=== PATIENT | male | born 1975 | race Two or more races ===

== ENCOUNTER 2022-11-26 12:43 | Inpatient (IN) | payer OTHER ==
[~2022-11-26] VITALS: Ht 165.1 cm; Wt 80.2 kg
[2022-11-26 13:16] LABS: Basophils # (auto) 0.1 10 ^3/uL (0-0.2); Basophils % (auto) 1.3 % (0.0-2.0); Eosinophils # (auto) 0.2 10 ^3/uL (0-0.8); Eosinophils % (auto) 2.5 % (0.0-7.0); Hematocrit 37.2 % (41.0-53.0); Lymphocytes # (auto) 3.3 10 ^3/uL (0.4-5.4); Lymphocytes % (auto) 34.1 % (10.0-50.0); Mean Corpuscular Hemoglobin 28.4 pg (28.0-32.0); Mean Corpuscular Hgb Conc. 34.8 g/dL (32.0-36.0); Mean Corpuscular Volume 81.5 fL (80.0-100.0); Monocytes # (auto) 0.6 10 ^3/uL (0-1.3); Monocytes % (auto) 6.7 % (0.0-12.0); Neutrophils # (auto) 5.3 10 ^3/uL (1.6-8.6); Neutrophils % (auto) 55.4 % (37.0-80.0); Red Blood Cells 4.57 10^6/uL (4.5-5.90); Red Cell Distribution Width 13.8 % (11.8-14.3); White Blood Cell 9.6 10^3/uL (4.4-10.8)
[2022-11-26 13:29] LABS: INR 0.91 (0.9-1.15); Partial Thromboplastin Time 29.9 sec (24.6-33.4)
[2022-11-26 13:33] LABS: Albumin 2.6 g/dL (3.4-5.0); Calcium 7.9 mg/dL (8.5-10.1); Magnesium 2.2 mg/dL (1.6-2.6); Potassium 4.6 mmol/L (3.5-5.1)
[2022-11-26 13:39] LABS: BUN/Creatinine Ratio 15.5; Bilirubin, Total 0.3 mg/dL (0.2-1.0); Total Protein 5.4 g/dL (6.4-8.2)
[2022-11-26] MEDS ORDERED: methylPREDNISolone SOD SUCC 125 MG/2 ML VL IV ONE (13:45)
[2022-11-26] MEDS ORDERED: LABETALOL HCL 5 MG/ML 4ML SYRINGE IV ONE (13:45)
[2022-11-26] MEDS ORDERED: cloNIDine HCL 0.1 MG TAB PO ONE (13:45)
[2022-11-26] MEDS ORDERED: cloNIDine HCL 0.1 MG TAB PO PRN (15:15)
[2022-11-26] MEDS ORDERED: ACETAMINOPHEN 325 MG TAB PO PRN (15:15)
[2022-11-26] MEDS ORDERED: DEXTROSE (50%) 50ML SYRG IV PRN (15:15)
[2022-11-26] MEDS ORDERED: ONDANSETRON HCL 4 MG/2 ML VIAL IV PRN (15:15)
[2022-11-26] MEDS ORDERED: dilTIAZem 25 MG/5 ML VIAL IV ONE (15:15)
[2022-11-26] MEDS ORDERED: CLOPIDOGREL BISULFATE 75 MG TAB PO ONE (15:30)
[2022-11-26] MEDS: ACCU-CHEK COMFORT CURVE STRIP VI SCH ×2 (17:19→21:39)
[2022-11-26] MEDS: InsuLIN REG 1unit/0.01ml Soln (100units/ml) SC SCH ×2 (17:21→21:43)
[2022-11-26] MEDS ORDERED: INSU1INJ19 SC (20:15)
[2022-11-26] MEDS ORDERED: ROSU1TAB13 PO (20:15)
[2022-11-26] MEDS ORDERED: NICO21DI37 TOP (20:15)
[2022-11-26] MEDS ORDERED: LOSA-69 PO (20:15)
[2022-11-26] MEDS: ATORVASTATIN 20 MG TAB PO SCH (21:39)
[2022-11-26 22:00] VITALS: BP 201/111
[2022-11-26] MEDS ORDERED: hydrALAZINE HCL 20 MG/ML VL IV ONE (23:15)
[2022-11-27] MEDS: TEMAZEPAM 15 MG CAP PO PRN (00:26)
[2022-11-27] MEDS ORDERED: cloNIDine HCL 0.1 MG TAB PO PRN ×2 (00:30→21:45)
[2022-11-27] MEDS: ASPirin 81 mg TAB PO SCH ×2 (00:37→10:53)
[2022-11-27 05:00] VITALS: BP 147/93
[2022-11-27] MEDS: InsuLIN REG 1unit/0.01ml Soln (100units/ml) SC SCH ×4 (06:42→21:54)
[2022-11-27] MEDS: ACCU-CHEK COMFORT CURVE STRIP VI SCH ×4 (06:43→22:00)
[2022-11-27 06:54] LABS: Basophils # (auto) 0 10 ^3/uL (0-0.2); Basophils % (auto) 0.1 % (0.0-2.0); Eosinophils # (auto) 0 10 ^3/uL (0-0.8); Hematocrit 36.6 % (41.0-53.0); Hemoglobin 12.5 g/dL (13.5-17.5); Lymphocytes # (auto) 1.7 10 ^3/uL (0.4-5.4); Mean Corpuscular Hemoglobin 28.1 pg (28.0-32.0); Mean Corpuscular Hgb Conc. 34.1 g/dL (32.0-36.0); Mean Corpuscular Volume 82.6 fL (80.0-100.0); Monocytes # (auto) 0.3 10 ^3/uL (0-1.3); Monocytes % (auto) 2.3 % (0.0-12.0); Neutrophils # (auto) 10.2 10 ^3/uL (1.6-8.6); Neutrophils % (auto) 83.6 % (37.0-80.0); Nucleated Red Blood Cells % 0.1 %; Red Blood Cells 4.43 10^6/uL (4.5-5.90); Red Cell Distribution Width 13.5 % (11.8-14.3); White Blood Cell 12.3 10^3/uL (4.4-10.8)
[2022-11-27 07:23] LABS: Calcium 8.2 mg/dL (8.5-10.1); Potassium 4.3 mmol/L (3.5-5.1)
[2022-11-27 07:39] LABS: BUN/Creatinine Ratio 18.1
[2022-11-27 09:00] VITALS: BP 156/90
[2022-11-27] MEDS ORDERED: ENOXAPARIN SOD 40 MG/0.4 ML SYRINGE SC SCH (10:00)
[2022-11-27] MEDS ORDERED: ASPirin 81 mg TAB PO SCH (10:00)
[2022-11-27] MEDS: NICOTINE 14 MG/24HR TOPICAL PATCH TD SCH (10:00)
[2022-11-27] MEDS: LOSARTAN POTASSIUM 50 MG TAB PO SCH (10:52)
[2022-11-27] MEDS: hydrALAZINE HCL 20 MG/ML VL IV PRN ×3 (12:28→23:32)
[2022-11-27 13:00] VITALS: BP 184/100
[2022-11-27 15:13] LABS: Alcohol, Urine < 3.0 mg/dL (0-10); Barbiturate Scree,Urine NEGATIVE (NEGATIVE); Benzodiazephine Screen, Urine NEGATIVE (NEGATIVE); Sodium Urine 33 mmol/L (40-220)
[2022-11-27 15:22] LABS: Amphetamine Screen, Urine NEGATIVE (NEGATIVE); Cannabinoid Screen, Urine NEGATIVE (NEGATIVE); Cocaine Screen, Urine NEGATIVE (NEGATIVE); Creatinine, Urine 88 mg/dL (30.0-125.0); Opiate Scree,Urine NEGATIVE (NEGATIVE); Phencyclidine Screen, Urine NEGATIVE (NEGATIVE); Protein, Urine 817.1 mg/dL (0.0-11.9)
[2022-11-27 17:00] VITALS: BP 183/95
[2022-11-27 22:00] VITALS: BP 164/86
[2022-11-27] MEDS: ATORVASTATIN 20 MG TAB PO SCH (22:07)
[2022-11-28] MEDS: TEMAZEPAM 15 MG CAP PO PRN ×2 (01:49→22:31)
[2022-11-28 05:00] VITALS: BP 150/69
[2022-11-28] MEDS: InsuLIN REG 1unit/0.01ml Soln (100units/ml) SC SCH ×4 (05:47→23:02)
[2022-11-28] MEDS: ACCU-CHEK COMFORT CURVE STRIP VI SCH ×4 (06:37→22:22)
[2022-11-28 06:48] LABS: Basophils # (auto) 0.1 10 ^3/uL (0-0.2); Basophils % (auto) 0.9 % (0.0-2.0); Eosinophils # (auto) 0.2 10 ^3/uL (0-0.8); Eosinophils % (auto) 1.3 % (0.0-7.0); Hematocrit 36.3 % (41.0-53.0); Hemoglobin 12.6 g/dL (13.5-17.5); Lymphocytes # (auto) 4.7 10 ^3/uL (0.4-5.4); Lymphocytes % (auto) 34.5 % (10.0-50.0); Mean Corpuscular Hemoglobin 28.6 pg (28.0-32.0); Mean Corpuscular Hgb Conc. 34.8 g/dL (32.0-36.0); Mean Corpuscular Volume 82.3 fL (80.0-100.0); Monocytes # (auto) 0.9 10 ^3/uL (0-1.3); Monocytes % (auto) 6.5 % (0.0-12.0); Neutrophils # (auto) 7.7 10 ^3/uL (1.6-8.6); Neutrophils % (auto) 56.8 % (37.0-80.0); Nucleated Red Blood Cells % 0.1 %; Red Blood Cells 4.41 10^6/uL (4.5-5.90); Red Cell Distribution Width 13.6 % (11.8-14.3); White Blood Cell 13.6 10^3/uL (4.4-10.8)
[2022-11-28 07:28] LABS: Potassium 4.2 mmol/L (3.5-5.1)
[2022-11-28 07:37] LABS: Albumin 2.5 g/dL (3.4-5.0); BUN/Creatinine Ratio 22.2; Calcium 8.6 mg/dL (8.5-10.1)
[2022-11-28 07:39] LABS: Bilirubin, Total 0.2 mg/dL (0.2-1.0); Total Protein 5.7 g/dL (6.4-8.2)
[2022-11-28 08:00] VITALS: BP 172/86
[2022-11-28 09:00] VITALS: BP 172/86
[2022-11-28] MEDS: NICOTINE 14 MG/24HR TOPICAL PATCH TD SCH (10:00)
[2022-11-28] MEDS: ASPirin 81 mg TAB PO SCH (10:26)
[2022-11-28] MEDS: hydrALAZINE HCL 20 MG/ML VL IV PRN (10:26)
[2022-11-28] MEDS: LOSARTAN POTASSIUM 50 MG TAB PO SCH (10:26)
[2022-11-28 13:00] VITALS: BP 117/72
[2022-11-28 17:00] VITALS: BP 151/84
[2022-11-28] MEDS ORDERED: NICOTINE 14 MG/24HR TOPICAL PATCH TD ONE (20:30)
[2022-11-28 22:00] VITALS: BP 152/82
[2022-11-28] MEDS: ATORVASTATIN 20 MG TAB PO SCH (22:31)
[2022-11-29] VITALS (7 sets, daily range): BP systolic 126–171; BP diastolic 69–93
[2022-11-29] MEDS: ACCU-CHEK COMFORT CURVE STRIP VI SCH ×4 (06:09→22:02)
[2022-11-29] MEDS: InsuLIN REG 1unit/0.01ml Soln (100units/ml) SC SCH ×4 (06:13→22:03)
[2022-11-29 07:07] LABS: Basophils # (auto) 0.1 10 ^3/uL (0-0.2); Basophils % (auto) 0.8 % (0.0-2.0); Eosinophils # (auto) 0.3 10 ^3/uL (0-0.8); Eosinophils % (auto) 2.9 % (0.0-7.0); Hematocrit 35.4 % (41.0-53.0); Lymphocytes # (auto) 4.2 10 ^3/uL (0.4-5.4); Lymphocytes % (auto) 42.4 % (10.0-50.0); Mean Corpuscular Volume 82.3 fL (80.0-100.0); Monocytes # (auto) 0.7 10 ^3/uL (0-1.3); Monocytes % (auto) 7.2 % (0.0-12.0); Neutrophils # (auto) 4.6 10 ^3/uL (1.6-8.6); Neutrophils % (auto) 46.7 % (37.0-80.0); Nucleated Red Blood Cells % 0.1 %; Red Cell Distribution Width 13.5 % (11.8-14.3); White Blood Cell 9.9 10^3/uL (4.4-10.8)
[2022-11-29 07:25] LABS: Albumin 2.3 g/dL (3.4-5.0); Potassium 4.5 mmol/L (3.5-5.1)
[2022-11-29 07:28] LABS: BUN/Creatinine Ratio 24.8; Bilirubin, Total 0.2 mg/dL (0.2-1.0); Total Protein 4.7 g/dL (6.4-8.2)
[2022-11-29] MEDS: LOSARTAN POTASSIUM 50 MG TAB PO SCH (09:41)
[2022-11-29] MEDS: ASPirin 81 mg TAB PO SCH (09:46)
[2022-11-29] MEDS: NICOTINE 14 MG/24HR TOPICAL PATCH TD SCH (09:48)
[2022-11-29] MEDS ORDERED: amLODIPine BESYLATE 5 MG TAB PO SCH (10:00)
[2022-11-29] MEDS ORDERED: NIFEdipine ER 30 MG TAB PO ONE (20:15)
[2022-11-29] MEDS: ATORVASTATIN 20 MG TAB PO SCH (21:40)
[2022-11-29] MEDS: TEMAZEPAM 15 MG CAP PO PRN (21:40)
[2022-11-30 05:00] VITALS: BP 132/76
[2022-11-30] MEDS: ACCU-CHEK COMFORT CURVE STRIP VI SCH ×4 (06:49→22:00)
[2022-11-30] MEDS: InsuLIN REG 1unit/0.01ml Soln (100units/ml) SC SCH ×4 (06:51→22:00)
[2022-11-30 07:30] LABS: Basophils # (auto) 0.1 10 ^3/uL (0-0.2); Basophils % (auto) 1.1 % (0.0-2.0); Eosinophils # (auto) 0.3 10 ^3/uL (0-0.8); Eosinophils % (auto) 2.5 % (0.0-7.0); Hematocrit 38.9 % (41.0-53.0); Hemoglobin 13.1 g/dL (13.5-17.5); Lymphocytes # (auto) 4.4 10 ^3/uL (0.4-5.4); Lymphocytes % (auto) 35.3 % (10.0-50.0); Mean Corpuscular Hemoglobin 27.7 pg (28.0-32.0); Mean Corpuscular Hgb Conc. 33.7 g/dL (32.0-36.0); Mean Corpuscular Volume 82.4 fL (80.0-100.0); Monocytes # (auto) 0.8 10 ^3/uL (0-1.3); Monocytes % (auto) 6.6 % (0.0-12.0); Neutrophils # (auto) 6.7 10 ^3/uL (1.6-8.6); Neutrophils % (auto) 54.5 % (37.0-80.0); Red Blood Cells 4.72 10^6/uL (4.5-5.90); Red Cell Distribution Width 13.4 % (11.8-14.3); White Blood Cell 12.4 10^3/uL (4.4-10.8)
[2022-11-30 08:17] LABS: Potassium 4.7 mmol/L (3.5-5.1)
[2022-11-30 08:25] LABS: Albumin 2.7 g/dL (3.4-5.0); BUN/Creatinine Ratio 21.9; Bilirubin, Total 0.4 mg/dL (0.2-1.0); Calcium 8.7 mg/dL (8.5-10.1); Total Protein 5.6 g/dL (6.4-8.2)
[2022-11-30 08:50] VITALS: BP 124/81
[2022-11-30] MEDS: NICOTINE 14 MG/24HR TOPICAL PATCH TD SCH (10:21)
[2022-11-30] MEDS: LOSARTAN POTASSIUM 50 MG TAB PO SCH (10:22)
[2022-11-30] MEDS: NIFEdipine ER 30 MG TAB PO SCH (10:23)
[2022-11-30] MEDS: ASPirin 81 mg TAB PO SCH (10:23)
[2022-11-30] MEDS ORDERED: PROMETHAZINE HCL 25 MG/ML 1ML IV ONE (11:00)
[2022-11-30] MEDS ORDERED: MIDAZOLAM HCL 2MG/2ML 2ml VIAL (1mg/ml) IV ONE (12:30)
[2022-11-30] MEDS ORDERED: fentaNYL CITRATE 100 MCG/2 ML VL IV ONE (12:30)
[2022-11-30] MEDS ORDERED: LIDOCAINE VISCOUS 2% 15ML UD MT ONE (12:30)
[2022-11-30] MEDS ORDERED: MIDAZOLAM HCL 2MG/2ML 2ml VIAL (1mg/ml) ONE (13:20)
[2022-11-30] MEDS ORDERED: ENOXAPARIN SOD 40 MG/0.4 ML SYRINGE SC ONE (16:00)
[2022-11-30 17:09] VITALS: BP 146/79
[2022-11-30 19:07] LABS: Urine Bacteria FEW /hpf (None Seen); Urine Blood TRACE /uL (Negative); Urine WBC 1 /hpf (0 - 3)
[2022-11-30 20:00] VITALS: BP 124/81
[2022-11-30] MEDS ORDERED: APIXABAN 5 MG TAB PO SCH (22:00)
[2022-11-30] MEDS: ATORVASTATIN 20 MG TAB PO SCH (23:14)
[2022-12-01 02:14] VITALS: BP 143/77
[2022-12-01 05:22] LABS: Basophils # (auto) 0.1 10 ^3/uL (0-0.2); Basophils % (auto) 0.9 % (0.0-2.0); Eosinophils # (auto) 0.3 10 ^3/uL (0-0.8); Eosinophils % (auto) 3.3 % (0.0-7.0); Hematocrit 36.1 % (41.0-53.0); Hemoglobin 12.5 g/dL (13.5-17.5); Lymphocytes # (auto) 3.9 10 ^3/uL (0.4-5.4); Mean Corpuscular Hemoglobin 28.2 pg (28.0-32.0); Mean Corpuscular Hgb Conc. 34.6 g/dL (32.0-36.0); Mean Corpuscular Volume 81.4 fL (80.0-100.0); Monocytes # (auto) 0.7 10 ^3/uL (0-1.3); Monocytes % (auto) 7.2 % (0.0-12.0); Neutrophils # (auto) 4.7 10 ^3/uL (1.6-8.6); Neutrophils % (auto) 48.6 % (37.0-80.0); Nucleated Red Blood Cells % 0.1 %; Red Blood Cells 4.43 10^6/uL (4.5-5.90); Red Cell Distribution Width 13.3 % (11.8-14.3); White Blood Cell 9.7 10^3/uL (4.4-10.8)
[2022-12-01 05:39] VITALS: BP 148/72
[2022-12-01 05:47] LABS: Albumin 2.5 g/dL (3.4-5.0); BUN/Creatinine Ratio 23.8 (10.0-20.0); Bilirubin, Total 0.3 mg/dL (0.2-1.0); Calcium 8.2 mg/dL (8.5-10.1); Total Protein 5.7 g/dL (6.4-8.2)
[2022-12-01] MEDS: InsuLIN REG 1unit/0.01ml Soln (100units/ml) SC SCH ×4 (07:00→21:28)
[2022-12-01] MEDS: ACCU-CHEK COMFORT CURVE STRIP VI SCH ×4 (07:00→21:24)
[2022-12-01 08:30] VITALS: BP 138/80
[2022-12-01] MEDS ORDERED: ENOXAPARIN SOD 40 MG/0.4 ML SYRINGE SC SCH (10:00)
[2022-12-01] MEDS ORDERED: MIDAZOLAM HCL 2MG/2ML 2ml VIAL (1mg/ml) IV ONE (10:45)
[2022-12-01] MEDS ORDERED: fentaNYL CITRATE 100 MCG/2 ML VL IV ONE (10:45)
[2022-12-01] MEDS: NICOTINE 14 MG/24HR TOPICAL PATCH TD SCH (11:00)
[2022-12-01] MEDS: LOSARTAN POTASSIUM 50 MG TAB PO SCH (11:00)
[2022-12-01] MEDS: NIFEdipine ER 30 MG TAB PO SCH (11:01)
[2022-12-01 13:00] VITALS: BP 142/81
[2022-12-01 16:45] VITALS: BP 130/80
[2022-12-01] MEDS: ATORVASTATIN 20 MG TAB PO SCH (21:23)
[2022-12-01] MEDS ORDERED: APIXABAN 5 MG TAB PO SCH ×2 (22:00)
[2022-12-01] MEDS: hydrALAZINE HCL 20 MG/ML VL IV PRN (22:26)
[2022-12-01 22:27] VITALS: BP 152/73
[2022-12-01] MEDS: TEMAZEPAM 15 MG CAP PO PRN (22:36)
[2022-12-02 05:19] VITALS: BP 145/70
[2022-12-02] MEDS: ACCU-CHEK COMFORT CURVE STRIP VI SCH ×2 (05:51→12:19)
[2022-12-02] MEDS: InsuLIN REG 1unit/0.01ml Soln (100units/ml) SC SCH ×2 (05:56→12:20)
[2022-12-02 06:43] LABS: Basophils # (auto) 0.1 10 ^3/uL (0-0.2); Eosinophils # (auto) 0.4 10 ^3/uL (0-0.8); Eosinophils % (auto) 3.5 % (0.0-7.0); Hematocrit 34.8 % (41.0-53.0); Hemoglobin 12.1 g/dL (13.5-17.5); Lymphocytes # (auto) 3.7 10 ^3/uL (0.4-5.4); Lymphocytes % (auto) 35.6 % (10.0-50.0); Mean Corpuscular Hemoglobin 28.5 pg (28.0-32.0); Mean Corpuscular Hgb Conc. 34.8 g/dL (32.0-36.0); Mean Corpuscular Volume 81.8 fL (80.0-100.0); Monocytes # (auto) 0.7 10 ^3/uL (0-1.3); Monocytes % (auto) 7.2 % (0.0-12.0); Neutrophils # (auto) 5.5 10 ^3/uL (1.6-8.6); Neutrophils % (auto) 52.7 % (37.0-80.0); Red Blood Cells 4.25 10^6/uL (4.5-5.90); Red Cell Distribution Width 13.7 % (11.8-14.3); White Blood Cell 10.4 10^3/uL (4.4-10.8)
[2022-12-02 06:56] LABS: Albumin 2.5 g/dL (3.4-5.0); Calcium 8.3 mg/dL (8.5-10.1); Potassium 4.1 mmol/L (3.5-5.1)
[2022-12-02 06:59] LABS: BUN/Creatinine Ratio 21.4 (10.0-20.0)
[2022-12-02 07:02] LABS: Bilirubin, Total 0.2 mg/dL (0.2-1.0); Total Protein 5.7 g/dL (6.4-8.2)
[2022-12-02 08:06] LABS: Immunoglobulin G, Serum 585 mg/dL (603-1613)
[2022-12-02 08:15] VITALS: BP 150/92
[2022-12-02 09:14] VITALS: BP 150/92
[2022-12-02] MEDS: NICOTINE 14 MG/24HR TOPICAL PATCH TD SCH (10:00)
[2022-12-02] MEDS: LOSARTAN POTASSIUM 50 MG TAB PO SCH (10:25)
[2022-12-02] MEDS: NIFEdipine ER 30 MG TAB PO SCH (10:26)
[2022-12-02] MEDS ORDERED: NIFE1TAB31 PO (12:26)
[2022-12-02] MEDS ORDERED: APIX5TAB PO (12:26)
[2022-12-02 12:51] VITALS: BP 139/79
[2022-12-02 13:34] VITALS: BP 150/92
[2022-12-02] MEDS ORDERED: APIXABAN 5 MG TAB PO SCH (22:00)
[2022-12-03 11:59] LABS: Hepatitis A Ab IgM Negative; Hepatitis C Antibody Negative (Negative)
[2022-12-03 12:00] LABS: Hepatitis B Core IgM Negative
[2022-12-09] MEDS ORDERED: APIXABAN 5 MG TAB PO SCH (22:00)
== END 2022-12-02 15:20 | disposition home health service (06) | DRG 45 ==
LOC: ER 12:43 → OVERFLOW 15:12 → WEST WING 19:04
PROVIDERS: ADMIT Nurse Practitioner; ATTEND Internal Medicine Pulmonary Disease
PROC: 4A10X4Z Monitoring of Central Nervous Electrical Activity, External Approach (ICD-10-PCS; 2022-11-27)
PROC: B24BZZ4 Ultrasonography of Heart with Aorta, Transesophageal (ICD-10-PCS; 2022-11-30)
PROC: 0TB13ZX Excision of Left Kidney, Percutaneous Approach, Diagnostic (ICD-10-PCS; principal; 2022-12-01)
DX: I63.9 Cerebral infarction, unspecified (principal); E44.0 Moderate protein-calorie malnutrition; N17.9 Acute kidney failure, unspecified; G81.94 Hemiplegia, unspecified affecting left nondominant side; H53.462 Homonymous bilateral field defects, left side; D63.1 Anemia in chronic kidney disease; I51.3 Intracardiac thrombosis, not elsewhere classified; G51.0 Bell's palsy; Z68.29 Body mass index [BMI] 29.0-29.9, adult; E11.22 Type 2 diabetes mellitus with diabetic chronic kidney disease; E66.9 Obesity, unspecified; I12.9 Hypertensive chronic kidney disease with stage 1 through stage 4 chronic kidney disease, or unspecified chronic kidney disease; N18.32 Chronic kidney disease, stage 3b; R47.1 Dysarthria and anarthria; R80.9 Proteinuria, unspecified; Z20.822 Contact with and (suspected) exposure to COVID-19; G47.00 Insomnia, unspecified; E78.5 Hyperlipidemia, unspecified; I16.1 Hypertensive emergency; Z79.4 Long term (current) use of insulin; Z79.82 Long term (current) use of aspirin; Z79.899 Other long term (current) drug therapy; Z82.49 Family history of ischemic heart disease and other diseases of the circulatory system; Z83.3 Family history of diabetes mellitus; Z86.73 Personal history of transient ischemic attack (TIA), and cerebral infarction without residual deficits; Z87.891 Personal history of nicotine dependence
CPT/HCPCS: 10005; 36415; 70450; 70551; 71045; 74150; 76775; 77012; 80048; 80053; 80061; 80074; 80307; 81001; 82306; 82570; 82784; 82962; 83036; 83516; 83520; 83735; 83880; 83970; 84100; 84155; 84156; 84165; 84166; 84300; 84484; 85025; 85610; 85730; 86160; 86225; 86235; 86256; 86334; 86335; 86703; 87040; 87426; 93005; 93312; 93886; 95819; 97110; 97116; 97530; 99152; G0378; J1815; J2250; J2405; J3490

== ENCOUNTER 2023-01-06 10:26 | Inpatient (IN) | payer MEDICAID, OTHER ==
[~2023-01-06] VITALS: Ht 160 cm; Wt 72.9 kg
[~2023-01-06 10:26] MED LIST: APIX5TAB PO; INSU1INJ19 SC; LOSA-69 PO; NICO21DI37 TOP; NIFE1TAB31 PO; ROSU1TAB13 PO
[2023-01-06 10:55] LABS: Basophils # (auto) 0.1 10 ^3/uL (0-0.2); Basophils % (auto) 1.2 % (0.0-2.0); Eosinophils # (auto) 0.2 10 ^3/uL (0-0.8); Eosinophils % (auto) 2.5 % (0.0-7.0); Hematocrit 35.8 % (41.0-53.0); Hemoglobin 12.1 g/dL (13.5-17.5); Lymphocytes # (auto) 3.4 10 ^3/uL (0.4-5.4); Lymphocytes % (auto) 36.7 % (10.0-50.0); Mean Corpuscular Hemoglobin 27.5 pg (28.0-32.0); Mean Corpuscular Hgb Conc. 33.7 g/dL (32.0-36.0); Mean Corpuscular Volume 81.5 fL (80.0-100.0); Monocytes # (auto) 0.7 10 ^3/uL (0-1.3); Monocytes % (auto) 7.8 % (0.0-12.0); Neutrophils # (auto) 4.8 10 ^3/uL (1.6-8.6); Neutrophils % (auto) 51.8 % (37.0-80.0); Nucleated Red Blood Cells % 0.2 %; Red Blood Cells 4.39 10^6/uL (4.5-5.90); Red Cell Distribution Width 13.3 % (11.8-14.3); White Blood Cell 9.3 10^3/uL (4.4-10.8)
[2023-01-06 11:15] LABS: Albumin 2.8 g/dL (3.4-5.0); Calcium 8.6 mg/dL (8.5-10.1); Magnesium 2.5 mg/dL (1.6-2.6); Potassium 4.3 mmol/L (3.5-5.1)
[2023-01-06 11:17] LABS: INR 0.91 (0.9-1.15); Partial Thromboplastin Time 29.3 sec (24.6-33.4)
[2023-01-06 11:18] LABS: Bilirubin, Total 0.2 mg/dL (0.2-1.0); Total Protein 5.9 g/dL (6.4-8.2)
[2023-01-06] MEDS ORDERED: NITROGLYCERIN 0.4 MG SL TAB SL PRN (14:15)
[2023-01-06] MEDS ORDERED: DEXTROSE (50%) 50ML SYRG IV PRN (14:15)
[2023-01-06] MEDS ORDERED: MORPHINE SULFATE INJ 2 MG/ml SYRG IV PRN (14:15)
[2023-01-06] MEDS ORDERED: hydrALAZINE HCL 20 MG/ML VL IV PRN (14:15)
[2023-01-06] MEDS ORDERED: ACETAMINOPHEN 325 MG TAB PO PRN (14:15)
[2023-01-06] MEDS ORDERED: NIFEdipine ER 30 MG TAB PO ONE (16:45)
[2023-01-06] MEDS ORDERED: LOSARTAN POTASSIUM 25 MG TAB PO ONE (16:45)
[2023-01-06] MEDS: SODIUM CHLORIDE 0.9% 1,000 ML IV SCH (16:51)
[2023-01-06] MEDS: InsuLIN REG 1unit/0.01ml Soln (100units/ml) SC SCH ×2 (17:00→21:59)
[2023-01-06 18:02] LABS: Urine Bacteria FEW /hpf (None Seen); Urine Blood TRACE /uL (Negative); Urine Specific Gravity 1.011 (1.001-1.035); Urine WBC <1 /hpf (0 - 3)
[2023-01-06] MEDS: ACCU-CHEK COMFORT CURVE STRIP VI SCH ×2 (18:03→21:39)
[2023-01-06] MEDS: APIXABAN 5 MG TAB PO SCH (21:59)
[2023-01-06 22:40] VITALS: BP 138/71
[2023-01-06] MEDS ORDERED: MULT-1018 PO (23:41)
[2023-01-06] MEDS ORDERED: OMEG1400 PO (23:41)
[2023-01-06] MEDS ORDERED: CHOL20007 PO (23:41)
[2023-01-07 05:00] VITALS: BP 131/60
[2023-01-07 05:00] LABS: Basophils # (auto) 0.1 10 ^3/uL (0-0.2); Basophils % (auto) 0.9 % (0.0-2.0); Eosinophils # (auto) 0.2 10 ^3/uL (0-0.8); Eosinophils % (auto) 1.8 % (0.0-7.0); Hematocrit 35.6 % (41.0-53.0); Hemoglobin 12.2 g/dL (13.5-17.5); Lymphocytes # (auto) 3.2 10 ^3/uL (0.4-5.4); Lymphocytes % (auto) 28.7 % (10.0-50.0); Mean Corpuscular Hgb Conc. 34.2 g/dL (32.0-36.0); Monocytes # (auto) 0.8 10 ^3/uL (0-1.3); Monocytes % (auto) 7.5 % (0.0-12.0); Neutrophils # (auto) 6.8 10 ^3/uL (1.6-8.6); Neutrophils % (auto) 61.1 % (37.0-80.0); Nucleated Red Blood Cells % 0.1 %; Red Blood Cells 4.34 10^6/uL (4.5-5.90); Red Cell Distribution Width 13.3 % (11.8-14.3); White Blood Cell 11.1 10^3/uL (4.4-10.8)
[2023-01-07 05:06] LABS: Albumin 2.9 g/dL (3.4-5.0); Calcium 8.8 mg/dL (8.5-10.1); Potassium 3.9 mmol/L (3.5-5.1)
[2023-01-07 05:11] LABS: BUN/Creatinine Ratio 13.9 (10.0-20.0); Bilirubin, Total 0.2 mg/dL (0.2-1.0); Total Protein 6.2 g/dL (6.4-8.2)
[2023-01-07] MEDS: SODIUM CHLORIDE 0.9% 1,000 ML IV SCH (06:07)
[2023-01-07] MEDS: InsuLIN REG 1unit/0.01ml Soln (100units/ml) SC SCH ×2 (06:07→11:30)
[2023-01-07] MEDS: ACCU-CHEK COMFORT CURVE STRIP VI SCH ×2 (06:07→11:30)
[2023-01-07 09:01] VITALS: BP 117/80
[2023-01-07] MEDS ORDERED: NIFEdipine ER 30 MG TAB PO SCH (10:00)
[2023-01-07] MEDS ORDERED: LOSARTAN POTASSIUM 50 MG TAB PO SCH (10:00)
[2023-01-07] MEDS ORDERED: ATORVASTATIN 20 MG TAB PO SCH (10:00)
[2023-01-07] MEDS ORDERED: NICOTINE 21MG/24 HR TOPICAL PATCH TD SCH (10:00)
[2023-01-07] MEDS: APIXABAN 5 MG TAB PO SCH (10:09)
[2023-01-07 12:53] VITALS: BP 150/86
[2023-01-07 13:16] VITALS: BP 150/86
== END 2023-01-07 16:15 | disposition home or self-care (01) | DRG 45 ==
LOC: ER 10:26 → TELE 14:09 → TELE-WESTW 22:44
PROVIDERS: ADMIT Nurse Practitioner Family; ATTEND Internal Medicine
DX: I63.9 Cerebral infarction, unspecified (principal); N17.9 Acute kidney failure, unspecified; E44.0 Moderate protein-calorie malnutrition; I51.3 Intracardiac thrombosis, not elsewhere classified; E11.22 Type 2 diabetes mellitus with diabetic chronic kidney disease; E78.5 Hyperlipidemia, unspecified; F17.210 Nicotine dependence, cigarettes, uncomplicated; I12.9 Hypertensive chronic kidney disease with stage 1 through stage 4 chronic kidney disease, or unspecified chronic kidney disease; N18.9 Chronic kidney disease, unspecified; Z79.01 Long term (current) use of anticoagulants; Z79.4 Long term (current) use of insulin; Z79.899 Other long term (current) drug therapy; Z82.49 Family history of ischemic heart disease and other diseases of the circulatory system; Z83.3 Family history of diabetes mellitus; Z86.73 Personal history of transient ischemic attack (TIA), and cerebral infarction without residual deficits; Z68.28 Body mass index [BMI] 28.0-28.9, adult; R25.9 Unspecified abnormal involuntary movements
CPT/HCPCS: 36415; 70450; 70551; 71045; 80053; 81001; 82962; 83735; 83880; 84484; 85025; 85610; 85730; 93005; 93886; 96374; 97163; G0378; J1815

== ENCOUNTER → 2023-01-29 | Outpatient (CLI) | payer MEDICAID ==
[~2023-01-29] MED LIST changes: +CHOL20007 PO; -LOSA-69 PO; +MULT-1018 PO; +OMEG1400 PO
== END | disposition home or self-care (01) ==
LOC: Rad HDHVI 11:00
PROVIDERS: ATTEND Internal Medicine Cardiovascular Disease
DX: I10 Essential (primary) hypertension (principal)
CPT/HCPCS: 93306

== ENCOUNTER 2023-05-03 23:29 | Emergency (ER) | payer MEDICAID ==
[~2023-05-03] VITALS: Ht 160 cm; Wt 72.0 kg
[~2023-05-03 23:29] MED LIST changes: +ROSU10TA64 PO; -ROSU1TAB13 PO
[2023-05-04 00:13] LABS: Basophils # (auto) 0.1 10 ^3/uL (0-0.2); Basophils % (auto) 1.1 % (0.0-2.0); Eosinophils # (auto) 0.5 10 ^3/uL (0-0.8); Eosinophils % (auto) 4.5 % (0.0-7.0); Hematocrit 33.6 % (41.0-53.0); Hemoglobin 11.4 g/dL (13.5-17.5); Lymphocytes # (auto) 4.7 10 ^3/uL (0.4-5.4); Lymphocytes % (auto) 41.2 % (10.0-50.0); Mean Corpuscular Hemoglobin 28.8 pg (28.0-32.0); Mean Corpuscular Volume 84.6 fL (80.0-100.0); Monocytes # (auto) 0.9 10 ^3/uL (0-1.3); Monocytes % (auto) 7.7 % (0.0-12.0); Neutrophils # (auto) 5.2 10 ^3/uL (1.6-8.6); Neutrophils % (auto) 45.5 % (37.0-80.0); Nucleated Red Blood Cells % 0.2 %; Red Blood Cells 3.97 10^6/uL (4.5-5.90); Red Cell Distribution Width 13.3 % (11.8-14.3); White Blood Cell 11.4 10^3/uL (4.4-10.8)
[2023-05-04 00:22] LABS: Albumin 3.4 g/dL (3.4-5.0); BUN/Creatinine Ratio 13.2 (10.0-20.0); Calcium 8.8 mg/dL (8.7-10.4); Magnesium 2.6 mg/dL (1.6-2.6); Potassium 4.6 mmol/L (3.5-5.1)
[2023-05-04 00:24] LABS: Bilirubin, Total 0.2 mg/dL (0.2-1.0); Total Protein 6.3 g/dL (6.4-8.2)
[2023-05-04 00:29] LABS: Partial Thromboplastin Time 32.5 SEC (24.5-34.5); Prothrombin Time 10.5 sec (9.3-11.8)
[2023-05-04 05:40] VITALS: BP 151/96; PULSE 62; RESP 18; O2SAT 99
== END 2023-05-04 05:44 | disposition home or self-care (01) ==
LOC: ER 23:29
DX: R07.89 Other chest pain (principal); R51.9 Headache, unspecified; I12.9 Hypertensive chronic kidney disease with stage 1 through stage 4 chronic kidney disease, or unspecified chronic kidney disease; E11.22 Type 2 diabetes mellitus with diabetic chronic kidney disease; N18.9 Chronic kidney disease, unspecified; E78.5 Hyperlipidemia, unspecified; Z86.73 Personal history of transient ischemic attack (TIA), and cerebral infarction without residual deficits; Z79.4 Long term (current) use of insulin; Z79.899 Other long term (current) drug therapy
CPT/HCPCS: 36415; 70450; 71045; 80053; 83735; 83880; 84484; 85025; 85610; 85730; 93005

== ENCOUNTER 2023-06-09 12:09 | Emergency (ER) | payer MEDICAID ==
[~2023-06-09] VITALS: Ht 160 cm; Wt 77.1 kg
[2023-06-09 14:40] VITALS: RESP 16; TEMP 97.4
[2023-06-09 14:48] VITALS: BP 140/72; PULSE 84; O2SAT 99
[2023-06-09] MEDS ORDERED: DexAMETHasone SOD PHOS 10MG/1ML VIAL INJ IM ONE (15:00)
[2023-06-09] MEDS ORDERED: PRED20TA2 PO (15:38)
[2023-06-09] MEDS ORDERED: AZITTAB PO (15:38)
== END 2023-06-09 15:54 | disposition home or self-care (01) ==
LOC: ER 12:10
DX: J06.9 Acute upper respiratory infection, unspecified (principal); T36.0X5A Adverse effect of penicillins, initial encounter; T36.8X5A Adverse effect of other systemic antibiotics, initial encounter; T47.0X5A Adverse effect of histamine H2-receptor blockers, initial encounter; I10 Essential (primary) hypertension; E11.9 Type 2 diabetes mellitus without complications; E78.5 Hyperlipidemia, unspecified; Z86.73 Personal history of transient ischemic attack (TIA), and cerebral infarction without residual deficits; Z79.4 Long term (current) use of insulin; Z79.899 Other long term (current) drug therapy; Y92.89 Other specified places as the place of occurrence of the external cause
CPT/HCPCS: 96372; 99283; J1100

== ENCOUNTER 2023-06-14 10:46 | Emergency (ER) | payer MEDICAID ==
[~2023-06-14] VITALS: Ht 160 cm; Wt 77.8 kg
[~2023-06-14 10:46] MED LIST changes: +AZITTAB PO; +PRED20TA2 PO
[2023-06-14 11:26] VITALS: BP 118/70; PULSE 84; RESP 18; TEMP 97.9; O2SAT 99
[2023-06-14 13:34] LABS: Basophils # (auto) 0 10 ^3/uL (0-0.2); Basophils % (auto) 0.3 % (0.0-2.0); Eosinophils # (auto) 0.1 10 ^3/uL (0-0.8); Eosinophils % (auto) 0.7 % (0.0-7.0); Hematocrit 30.3 % (41.0-53.0); Hemoglobin 10.3 g/dL (13.5-17.5); Lymphocytes # (auto) 4.7 10 ^3/uL (0.4-5.4); Lymphocytes % (auto) 28.7 % (10.0-50.0); Mean Corpuscular Hemoglobin 28.2 pg (28.0-32.0); Mean Corpuscular Hgb Conc. 33.9 g/dL (32.0-36.0); Mean Corpuscular Volume 83.3 fL (80.0-100.0); Monocytes # (auto) 1.2 10 ^3/uL (0-1.3); Monocytes % (auto) 7.6 % (0.0-12.0); Neutrophils # (auto) 10.3 10 ^3/uL (1.6-8.6); Neutrophils % (auto) 62.7 % (37.0-80.0); Red Blood Cells 3.63 10^6/uL (4.5-5.90); White Blood Cell 16.4 10^3/uL (4.4-10.8)
[2023-06-14 13:41] LABS: Alanine Aminotransferase 85 U/L (7-40); Albumin 3.5 g/dL (3.2-4.8); Alkaline Phosphatase 70 U/L (46-116); Anion Gap 8 (5-15); Aspartate Aminotransferase 19 U/L (13-40); BUN/Creatinine Ratio 18.1 (10.0-20.0); Bilirubin, Total 0.3 mg/dL (0.2-1.0); Blood Urea Nitrogen 47 mg/dL (9-23); Calcium 8.4 mg/dL (8.5-10.1); Carbon Dioxide 22 mmol/L (20-30); Chloride 108 mmol/L (98-107); Glucose 212 mg/dL (74-106); Potassium 4.5 mmol/L (3.5-5.1); Sodium 138 mmol/L (136-145)
[2023-06-14 13:42] LABS: Total Protein 5.4 g/dL (5.7-8.2)
[2023-06-14 13:55] LABS: Urine Bacteria NONE SEEN /hpf (None Seen); Urine Blood TRACE /uL (Negative); Urine Clarity Clear (Clear); Urine Color Colorless (Yellow); Urine Protein, UAD 3+ (Negative); Urine Specific Gravity 1.015 (1.001-1.035); Urine Urobilinogen Normal (Negative); Urine WBC 1 /hpf (0 - 3); Urine pH 6.5 (5.0-8.0)
[2023-06-14] MEDS ORDERED: AZIT500T66 PO ×2 (14:45)
[2023-06-14] MEDS ORDERED: cefTRIAXone SOD 1,000 MG VL IM ONE (14:45)
[2023-06-14] MEDS ORDERED: CEPH500C PO (14:49)
== END 2023-06-14 15:01 | disposition home or self-care (01) ==
LOC: ER 10:46
DX: J03.90 Acute tonsillitis, unspecified (principal); I10 Essential (primary) hypertension; E11.9 Type 2 diabetes mellitus without complications; E78.5 Hyperlipidemia, unspecified; Z86.73 Personal history of transient ischemic attack (TIA), and cerebral infarction without residual deficits; Z79.4 Long term (current) use of insulin; Z79.899 Other long term (current) drug therapy
CPT/HCPCS: 36415; 80053; 81001; 83880; 85025; 96372; 99283; J0696

== ENCOUNTER 2023-09-01 06:51 | Inpatient (IN) | payer MEDICAID ==
[~2023-09-01] VITALS: Ht 157.5 cm; Wt 79.2 kg
[~2023-09-01 06:51] MED LIST changes: +CEPH500C PO
[2023-09-01] MEDS ORDERED: ACETAMINOPHEN 500 MG TAB PO ONE (08:15)
[2023-09-01 08:46] LABS: Basophils # (auto) 0 10 ^3/uL (0-0.2); Basophils % (auto) 0.5 % (0.0-2.0); Eosinophils # (auto) 0 10 ^3/uL (0-0.8); Eosinophils % (auto) 0.1 % (0.0-7.0); Hematocrit 33.3 % (41.0-53.0); Hemoglobin 11.1 g/dL (13.5-17.5); Lymphocytes % (auto) 9.4 % (10.0-50.0); Mean Corpuscular Hemoglobin 28.1 pg (28.0-32.0); Mean Corpuscular Hgb Conc. 33.4 g/dL (32.0-36.0); Monocytes # (auto) 0.7 10 ^3/uL (0-1.3); Monocytes % (auto) 6.6 % (0.0-12.0); Neutrophils # (auto) 8.6 10 ^3/uL (1.6-8.6); Neutrophils % (auto) 83.4 % (37.0-80.0); Red Blood Cells 3.97 10^6/uL (4.5-5.90); Red Cell Distribution Width 13.8 % (11.8-14.3); White Blood Cell 10.4 10^3/uL (4.4-10.8)
[2023-09-01 09:00] LABS: Alanine Aminotransferase 23 U/L (7-40); Albumin 3.6 g/dL (3.2-4.8); Alkaline Phosphatase 60 U/L (46-116); Anion Gap 10 (5-15); Aspartate Aminotransferase 16 U/L (13-40); BUN/Creatinine Ratio 9.7 (10.0-20.0); Blood Urea Nitrogen 36 mg/dL (9-23); Calcium 8.5 mg/dL (8.5-10.1); Carbon Dioxide 21 mmol/L (20-30); Chloride 105 mmol/L (98-107); Glucose 153 mg/dL (74-106); Potassium 4.7 mmol/L (3.5-5.1); Sodium 136 mmol/L (136-145)
[2023-09-01 09:01] LABS: Bilirubin, Total 0.3 mg/dL (0.2-1.0); Total Protein 5.9 g/dL (5.7-8.2)
[2023-09-01 09:08] VITALS: PULSE 97; RESP 16; O2SAT 97
[2023-09-01] MEDS ORDERED: SODIUM CHLORIDE 0.9% 1,000 ML IV ONE (09:45)
[2023-09-01 10:32] LABS: Urine Bacteria FEW /hpf (None Seen); Urine Blood 1+ /uL (Negative); Urine Clarity Clear (Clear); Urine Protein, UAD 3+ (Negative); Urine Specific Gravity 1.017 (1.001-1.035); Urine Sperm PRESENT /hpf (None Seen); Urine Urobilinogen Normal (Negative); Urine WBC 4 /hpf (0 - 3); Urine pH 6.5 (5.0-8.0)
[2023-09-01 10:34] LABS: Urine Color Straw (Yellow)
[2023-09-01] MEDS ORDERED: HYDROcodone-ACET 5/325MG TAB PO PRN (11:00)
[2023-09-01] MEDS ORDERED: ACETAMINOPHEN 325 MG TAB PO PRN ×2 (11:00)
[2023-09-01] MEDS ORDERED: MORPHINE SULFATE INJ 2 MG/ml SYRG IV PRN (11:00)
[2023-09-01] MEDS ORDERED: ONDANSETRON HCL 4 MG/2 ML VIAL IV PRN (11:00)
[2023-09-01] MEDS ORDERED: DOCUSATE SOD 100 MG CAP PO PRN (11:00)
[2023-09-01] MEDS ORDERED: NITROGLYCERIN 0.4 MG SL TAB SL PRN (11:00)
[2023-09-01 12:25] LABS: COVID19 ANTIGEN SOFIA FIA NEGATIVE (NEGATIVE)
[2023-09-01] MEDS: SODIUM CHLORIDE 0.9% 1,000 ML IV SCH (12:25)
[2023-09-01 12:26] LABS: Rapid Influenza A Negative (Negative); Rapid Influenza B Negative (Negative)
[2023-09-01] MEDS ORDERED: CALC667C PO (13:40)
[2023-09-01] MEDS ORDERED: GAB100C PO (13:40)
[2023-09-01] MEDS ORDERED: ASPI-325 PO (13:40)
[2023-09-01] MEDS ORDERED: FLUO20CA90 PO (13:40)
[2023-09-01] MEDS ORDERED: APIX2.5T PO (13:40)
[2023-09-01] MEDS ORDERED: DEXTROSE (50%) 50ML SYRG IV PRN (13:45)
[2023-09-01] MEDS: metroNIDAZOLE 500MG/100ML 100 ML IV SCH ×2 (17:52→21:53)
[2023-09-01] MEDS: InsuLIN REG 1unit/0.01ml Soln (100units/ml) SC SCH (18:00)
[2023-09-01] MEDS ORDERED: hydrALAZINE HCL 20 MG/ML VL ONE (18:06)
[2023-09-01] MEDS: hydrALAZINE HCL 20 MG/ML VL IV PRN (18:21)
[2023-09-01] MEDS: ACCU-CHEK COMFORT CURVE STRIP VI SCH (18:22)
[2023-09-01 19:40] VITALS: PULSE 99; RESP 18; O2SAT 100
[2023-09-01] MEDS ORDERED: dilTIAZem 25 MG/5 ML VIAL IV ONE (21:45)
[2023-09-01] MEDS: ATORVASTATIN 20 MG TAB PO SCH (21:53)
[2023-09-01] MEDS: APIXABAN 2.5 MG TAB PO SCH (21:56)
[2023-09-01] MEDS ORDERED: IOHEXOL 350 MG/ML 100ML IJ ONE (22:44)
[2023-09-02] VITALS (8 sets, daily range): BP systolic 134–188; BP diastolic 66–91; PULSE 78–108; RESP 16–18; TEMP 98.1–98.8; O2SAT 96–100
[2023-09-02] MEDS: ACCU-CHEK COMFORT CURVE STRIP VI SCH ×4 (00:42→18:00)
[2023-09-02] MEDS: InsuLIN REG 1unit/0.01ml Soln (100units/ml) SC SCH ×4 (00:43→18:00)
[2023-09-02] MEDS: hydrALAZINE HCL 20 MG/ML VL IV PRN ×2 (01:20→12:43)
[2023-09-02 05:21] LABS: Basophils # (auto) 0 10 ^3/uL (0-0.2); Basophils % (auto) 0.6 % (0.0-2.0); Eosinophils # (auto) 0 10 ^3/uL (0-0.8); Eosinophils % (auto) 0.1 % (0.0-7.0); Hematocrit 30.1 % (41.0-53.0); Hemoglobin 10.2 g/dL (13.5-17.5); Lymphocytes # (auto) 1.3 10 ^3/uL (0.4-5.4); Lymphocytes % (auto) 16.5 % (10.0-50.0); Mean Corpuscular Hemoglobin 28.5 pg (28.0-32.0); Mean Corpuscular Volume 83.7 fL (80.0-100.0); Monocytes # (auto) 0.7 10 ^3/uL (0-1.3); Monocytes % (auto) 9.3 % (0.0-12.0); Neutrophils # (auto) 5.8 10 ^3/uL (1.6-8.6); Neutrophils % (auto) 73.5 % (37.0-80.0); Red Cell Distribution Width 13.6 % (11.8-14.3); White Blood Cell 7.9 10^3/uL (4.4-10.8)
[2023-09-02] MEDS: metroNIDAZOLE 500MG/100ML 100 ML IV SCH ×3 (05:28→21:08)
[2023-09-02] MEDS: SODIUM CHLORIDE 0.9% 1,000 ML IV SCH ×2 (05:28→14:19)
[2023-09-02 05:30] LABS: Alkaline Phosphatase 50 U/L (46-116); Anion Gap 8 (5-15); Aspartate Aminotransferase 19 U/L (13-40); BUN/Creatinine Ratio 9.3 (10.0-20.0); Bilirubin, Total 0.3 mg/dL (0.2-1.0); Blood Urea Nitrogen 32 mg/dL (9-23); Calcium 8.1 mg/dL (8.7-10.4); Carbon Dioxide 20 mmol/L (20-30); Chloride 110 mmol/L (98-107); Glucose 135 mg/dL (74-106); Potassium 3.9 mmol/L (3.5-5.1); Sodium 138 mmol/L (136-145)
[2023-09-02 05:37] LABS: Alanine Aminotransferase 16 U/L (7-40)
[2023-09-02] MEDS: ASPirin-EC 81 mg tab PO SCH (09:47)
[2023-09-02] MEDS: MULTIPLE VITAMIN TAB PO SCH (09:47)
[2023-09-02] MEDS: CHOLECALCIFEROL (VITD3) 2,000 UNIT CAP/TAB PO SCH (09:48)
[2023-09-02] MEDS: APIXABAN 2.5 MG TAB PO SCH ×2 (09:49→21:09)
[2023-09-02] MEDS: NIFEdipine ER 30 MG TAB PO SCH (09:51)
[2023-09-02] MEDS ORDERED: NICOTINE 21MG/24 HR TOPICAL PATCH TD SCH (10:00)
[2023-09-02] MEDS ORDERED: levoFLOXacin 500MG 100 ML IV SCH (10:00)
[2023-09-02] MEDS: VANCOMYCIN HCL 125 MG CAP PO SCH ×2 (18:34→21:09)
[2023-09-02] MEDS: ATORVASTATIN 20 MG TAB PO SCH (21:08)
[2023-09-02] MEDS ORDERED: GABAPENTIN 100 MG CAP PO SCH (22:00)
[2023-09-03] MEDS: ACCU-CHEK COMFORT CURVE STRIP VI SCH ×3 (02:51→12:50)
[2023-09-03 05:00] VITALS: BP 157/64; PULSE 85; RESP 19; TEMP 98.3; O2SAT 98
[2023-09-03] MEDS: VANCOMYCIN HCL 125 MG CAP PO SCH ×2 (05:10→12:50)
[2023-09-03] MEDS: InsuLIN REG 1unit/0.01ml Soln (100units/ml) SC SCH ×3 (05:10→12:00)
[2023-09-03] MEDS: metroNIDAZOLE 500MG/100ML 100 ML IV SCH ×2 (05:10→14:26)
[2023-09-03 06:28] LABS: Basophils # (auto) 0 10 ^3/uL (0-0.2); Basophils % (auto) 0.7 % (0.0-2.0); Eosinophils # (auto) 0.2 10 ^3/uL (0-0.8); Eosinophils % (auto) 2.5 % (0.0-7.0); Hematocrit 27.2 % (41.0-53.0); Hemoglobin 9.3 g/dL (13.5-17.5); Lymphocytes # (auto) 2.1 10 ^3/uL (0.4-5.4); Lymphocytes % (auto) 32.6 % (10.0-50.0); Mean Corpuscular Hemoglobin 28.6 pg (28.0-32.0); Mean Corpuscular Hgb Conc. 34.3 g/dL (32.0-36.0); Mean Corpuscular Volume 83.4 fL (80.0-100.0); Monocytes # (auto) 0.9 10 ^3/uL (0-1.3); Monocytes % (auto) 13.2 % (0.0-12.0); Neutrophils # (auto) 3.3 10 ^3/uL (1.6-8.6); Red Blood Cells 3.26 10^6/uL (4.5-5.90); Red Cell Distribution Width 13.6 % (11.8-14.3); White Blood Cell 6.5 10^3/uL (4.4-10.8)
[2023-09-03 06:34] LABS: Chloride 112 mmol/L (98-107); Sodium 141 mmol/L (136-145)
[2023-09-03 06:35] LABS: Anion Gap 10 (5-15); Calcium 8.1 mg/dL (8.5-10.1); Carbon Dioxide 19 mmol/L (20-30)
[2023-09-03 06:40] LABS: BUN/Creatinine Ratio 7.4 (10.0-20.0); Blood Urea Nitrogen 26 mg/dL (9-23); Glucose 95 mg/dL (74-106)
[2023-09-03] MEDS: hydrALAZINE HCL 20 MG/ML VL IV PRN (07:53)
[2023-09-03 08:00] VITALS: BP 170/89; PULSE 105; PULSE 98; RESP 18; TEMP 97.8; O2SAT 98
[2023-09-03 09:00] VITALS: BP 170/89; PULSE 98; RESP 18; TEMP 97.8; O2SAT 98
[2023-09-03] MEDS: APIXABAN 2.5 MG TAB PO SCH (09:51)
[2023-09-03] MEDS: MULTIPLE VITAMIN TAB PO SCH (09:51)
[2023-09-03] MEDS: CHOLECALCIFEROL (VITD3) 2,000 UNIT CAP/TAB PO SCH (09:51)
[2023-09-03] MEDS: ASPirin-EC 81 mg tab PO SCH (09:51)
[2023-09-03] MEDS: NIFEdipine ER 30 MG TAB PO SCH (09:52)
[2023-09-03] MEDS ORDERED: FLORASTOR (S. BOULARDII) 250 MG CAP PO SCH (10:00)
[2023-09-03] MEDS ORDERED: levoFLOXacin 250MG 50 ML IV SCH (10:00)
[2023-09-03] MEDS ORDERED: SACC250C PO (11:56)
[2023-09-03] MEDS ORDERED: MET500T PO (11:56)
[2023-09-03] MEDS ORDERED: VANC125C3 PO (11:56)
[2023-09-03 13:00] VITALS: BP 142/86; PULSE 75; RESP 18; TEMP 97.9; O2SAT 99
[2023-09-03 14:59] VITALS: BP 142/86; PULSE 75; RESP 18; TEMP 97.9; O2SAT 99
== END 2023-09-03 15:43 | disposition home or self-care (01) | DRG 248 ==
LOC: ER 06:51 → TELE 10:57 → TELE-EAST 23:58
PROVIDERS: ADMIT Internal Medicine; ATTEND Internal Medicine
DX: A04.72 Enterocolitis due to Clostridium difficile, not specified as recurrent (principal); N17.0 Acute kidney failure with tubular necrosis; E11.22 Type 2 diabetes mellitus with diabetic chronic kidney disease; E11.40 Type 2 diabetes mellitus with diabetic neuropathy, unspecified; E78.5 Hyperlipidemia, unspecified; B96.81 Helicobacter pylori [H. pylori] as the cause of diseases classified elsewhere; A04.5 Campylobacter enteritis; E86.0 Dehydration; Z20.822 Contact with and (suspected) exposure to COVID-19; F32.A Depression, unspecified; I12.9 Hypertensive chronic kidney disease with stage 1 through stage 4 chronic kidney disease, or unspecified chronic kidney disease; N18.30 Chronic kidney disease, stage 3 unspecified; Z86.73 Personal history of transient ischemic attack (TIA), and cerebral infarction without residual deficits; Z79.01 Long term (current) use of anticoagulants; Z82.49 Family history of ischemic heart disease and other diseases of the circulatory system; Z83.3 Family history of diabetes mellitus; Z87.891 Personal history of nicotine dependence
CPT/HCPCS: 36415; 70450; 71045; 74176; 76775; 80048; 80053; 81001; 82962; 83036; 83605; 83690; 85025; 85048; 87040; 87045; 87426; 87427; 87493; 87804; 93005; 96360; 96361; G0378; J1815; J1956; J3490

== ENCOUNTER → 2024-04-10 | Outpatient (CLI) | payer MEDICAID ==
[~2024-04-10] MED LIST changes: +APIX2.5T PO; -APIX5TAB PO; +ASPI-325 PO; -AZITTAB PO; +CALC667C PO; -CEPH500C PO; +ERGO1CAP12 PO; +FURO40TA4 PO; +GAB100C PO; -INSU1INJ19 SC; +LOS25T PO; -MULT-1018 PO; -NICO21DI37 TOP; +NIFE1TAB30 PO; -NIFE1TAB31 PO; -OMEG1400 PO; -PRED20TA2 PO; +SODI650T PO
== END | disposition home or self-care (01) ==
LOC: XYW 14:39
PROVIDERS: ATTEND Student in an Organized Health Care Education/Training Program
DX: Z01.810 Encounter for preprocedural cardiovascular examination (principal); I50.32 Chronic diastolic (congestive) heart failure
CPT/HCPCS: 93306

== ENCOUNTER → 2024-04-18 | Outpatient (CLI) | payer MEDICAID ==
[~2024-04-18] VITALS: Ht 160 cm; Wt 77.1 kg
[2024-04-18] MEDS: ADENOSINE 65 MG in GIVE UN-DILUTED 0 ML IV STA (11:26)
== END | disposition home or self-care (01) ==
LOC: XYW 09:48
PROVIDERS: ATTEND Student in an Organized Health Care Education/Training Program
DX: Z01.810 Encounter for preprocedural cardiovascular examination (principal); I48.91 Unspecified atrial fibrillation; I13.2 Hypertensive heart and chronic kidney disease with heart failure and with stage 5 chronic kidney disease, or end stage renal disease; E11.22 Type 2 diabetes mellitus with diabetic chronic kidney disease; N18.6 End stage renal disease; E11.21 Type 2 diabetes mellitus with diabetic nephropathy; I50.32 Chronic diastolic (congestive) heart failure; D50.9 Iron deficiency anemia, unspecified; N25.81 Secondary hyperparathyroidism of renal origin; Z86.73 Personal history of transient ischemic attack (TIA), and cerebral infarction without residual deficits
CPT/HCPCS: 78452; 93017; A9500; J0153

== ENCOUNTER 2024-07-22 16:35 | Emergency (ER) | payer MEDICAID ==
[~2024-07-22] VITALS: Ht 160 cm; Wt 86.0 kg
--- NOTE | 2024-07-22 19:16 | ED.PDOC ---
History of Present Illness HPI Comments 49-year-old male who came to ER due to for wound check. Patient has history of hypertension and end-stage renal disease, currently on dialysis every Wednesday and Wednesday. Had a dialysis port inserted at his left upper extremity last May 22. Last Wednesday, a procedure was done at the [facility], where in they dilated the vessel of the left upper extremity, and fixed the AV fistula as well. Patient was deemed ready for dialysis on Wednesday, which was done. However on Wednesday, noted that the AV fistula of the left upper extremity was not working, so dialysis performed on his right chest wall instead. Denies any fever. Noted bruising and swelling of the left upper extremity. Chief Complaint: Wound Check Time Seen by MD: 19:16 Primary Care Provider: SHELLEY Reviewed Notes: Nurses Notes Allergies: Coded Allergies: NO KNOWN ALLERGIES (Unverified , 04/18/24) Home Meds Active Scripts Furosemide (Furosemide) 40 Mg Tab, 1 TAB PO DAILY, #30 TAB Prov:EMMY JAIMES MD 01/21/24 Reported Medications Nifedipine (Nifedipine Er) 60 Mg Tab, 1 TAB PO DAILY, #30 TAB 5 Refills 01/17/24 Ergocalciferol (Vitamin D) 50,000 Unit Cap, 1 CAP PO QWEEKLY 01/17/24 Sodium Bicarbonate (Sodium Bicarbonate) 650 Mg Tab, 1 TAB PO 01/17/24 Losartan Potassium (Losartan Potassium) 25 Mg Tab, 1 TAB PO DAILY 01/17/24 Gabapentin (Gabapentin) 100 Mg Cap, 1 CAP PO BID 09/01/23 Calcium Acetate (Phosphate Bin (Calcium Acetate) 667 Mg Cap, 1 CAP PO 09/01/23 Aspirin (Aspirin Low Dose) 81 Mg Tab, 1 TAB PO DAILY 09/01/23 Apixaban Base (ELIQUIS) 2.5 Mg Tab, 1 TAB PO BID 09/01/23 Cholecalciferol (VITAMIN D3) 2,000 Unit Tab, 1 TAB PO DAILY, #30 TAB 5 Refills 01/06/23 Rosuvastatin Calcium (Rosuvastatin Calcium) 10 Mg Tab, 1 TAB PO DAILY 11/26/22 Information Source: Patient Mode of Arrival: Ambulatory Severity: Moderate Timing: Days Duration: Since onset Past Medical History PAST MEDICAL HISTORY: CKF, CVA, Depression, DM, ESRD, High Lipids, HTN Surgical History: Denies all surgeries Surgical History (Other): Dialysis every Wednesday Family History Family History: Reviewed,noncontributory to illness Social History Smoker: Non-Smoker, Quit Less Than 1 Year Alcohol: Denies ETOH Use Drugs: Denies Drug Use Lives In: Home Constitutional: denies: chills, diaphoresis, fatigue, fever, malaise, sweats, weakness, others EENTM: denies: blurred vision, double vision, ear bleeding, ear discharge, ear drainage, ear pain, ear ringing, eye pain, eye redness, hearing loss, mouth pain, mouth swelling, nasal discharge, nose bleeding, nose congestion, nose pain, photophobia, tearing, throat pain, throat swelling, voice changes, others Respiratory: denies: cough, hemoptysis, orthopnea, SOB at rest, shortness of breath, SOB with excertion, stridor, wheezing, others Cardiovascular: denies: chest pain, dizzy spells, diaphoresis, Dyspnea on exertion, edema, irregular heart beat, left arm pain, lightheadedness, palpitations, PND, syncope, others Gastrointestinal: denies: abdomen distended, abdominal pain, blood streaked bowels, constipated, diarrhea, dysphagia, difficulty swallowing, hematemesis, melena, nausea, poor appetite, poor fluid intake, rectal bleeding, rectal pain, vomiting, others Genitourinary: denies: burning, dysuria, flank pain, frequency, hematuria, incontinence, penile discharge, penile sore, pain, testicle pain, testicle swelling, urgency, others Neurological: denies: dizziness, fainting, headache, left sided numbness, left sided weakness, numbness, paresthesia, pre-existing deficit, right sided numbness, right sided weakness, seizure, speech problems, tingling, tremors, weakness, others Musculoskeletal: reports: others (Bruising and swelling left upper extremity); denies: back pain, gout, joint pain, joint swelling, muscle pain, muscle stiffn ess, neck pain Integumetry: denies: bruises, change in color, change in hair/nails, dryness, laceration, lesions, lumps, rash, wounds, others Allergic/Immunocompromised: denies: Difficulty Healing, Frequent Infections, Hives, Itching, others Hematologic/Lymphatic: denies: anemia, blood clots, easy bleeding, easy brui sing, swollen glands, others Endocrine: denies: excessive hunger, excessive sweating, excessive thirst, ex cessive urination, flushing, intolerance to cold, intolerance to heat, unexplained weight gain, unexplained weight loss, others Psychiatric: denies: anxiety, bipolar disorder, depression, hopeless, panic disorder, schizophrenia, sleepless, suicidal, others Physical Exam General Appearance: No Apparent Distress, Normal HEENT: Normal ENT Inspection, Pharynx Normal, TMs Normal Neck: Full Range of Motion, Non-Tender, Normal, Normal Inspection Respiratory: Chest Non-Tender, Lungs Clear, No Accessory Muscle Use, No Res piratory Distress, Normal Breath Sounds Cardiovascular: No Edema, No JVD, No Murmur, No Gallop, Normal Peripheral Pulses, Regular Rate/Rhythm Breast Exam: Deferred Gastrointestinal: No Organomegaly, Non Tender, No Pulsatile Mass, Normal Bowel Sounds, Soft Genitalia: Deferred Pelvic: Deferred Rectal: Deferred Extremities: No calf tenderness, Normal capillary refill, Normal range of motion, Non-tender, No pedal edema, Swelling (Bruising and Swelling left upper extremity) Musculoskeletal : Apperance: Normal Neurologic: Alert, citizenship instructor II-XII nml as Tested, No Motor Deficits, Normal Affect, Normal Mood, No Sensory Deficits Cerebellar Function: Normal Reflexes: Normal Skin: Dry, Normal Color, Warm Lymphatic: No Adenopathy Was a procedure done? Was a procedure done?: No Differential Dx Considerations may include: End-stage renal disease, malfunctioning dialysis port, malfunctioning AV fistula X-Ray, Labs, Meds, VS Vital Signs Date Time Temp Pulse Resp B/P (MAP) Pulse Ox O2 Delivery O2 Flow Rate FiO2 07/22/24 17:36 97.8 71 16 128/67 (87) 100 LEFT UPPER EXTREMITY VENOUS ULTRASOUND CLINICAL HISTORY: SWELLING / DISCOLORATION COMPARISON: None TECHNIQUE: Grayscale ultrasound with compression, color Doppler, and spectral Doppler of the deep venous system of the left upper extremity from the base of the neck through the elbow performed. FINDINGS: Left internal jugular vein: Negative Left subclavian vein: Negative Left axillary vein: Negative. Left brachial veins:Negative. Left basilic vein: Negative Left cephalic vein: Negative. Other: Patient with brachiocephalic fistula. This appears patent at this time. IMPRESSION: No sonographic evidence of deep venous thrombosis in the left upper extremity at this time. Brachiocephalic fistula appears grossly patent. Time of 1ST Reevaluation: 19:10 Reevaluation 1ST: Unchanged Patient Education/Counseling: Diagnosis, Treatment Family Education/Counseling: Diagnosis, Treatment Departure 1 Departure Time of Disposition: 22:17 (Patient's ultrasound was negative. Patient had dialysis yesterday. We will discharge patient home with outpatient follow up) Impression: Primary Impression: AV fistula Disposition: 01 HOME / SELF CARE / HOMELESS Condition: Stable Additional Instructions: Your fistula appears patent and without any clots. It is important to follow up with your surgeon at your appointment this week. If your symptoms worsen or you have any other concerns then please return to the ER. Discharged With: Self Critical Care Note Critical Care Time?: No Stability Stability form required: No Heart Score Heart Score: Heart Score Response (Comments) Value History N/A 0 EKG N/A 0 Age N/A 0 Risk Factors N/A 0 Troponin N/A 0 Total 0 I personally scribed for JACQUIE TOSCANO MD ([email or web address]) on 07/22/24 at 19:16. Electronically submitted by Kashmir Robb ([employer] I personally scribed for JACQUIE TOSCANO MD ([email or web address]) on 07/22/24 at 20:34. Electronically submitted by Kashmir Robb ([employer] JACQUIE TOSCANO MD Jul 22, 2024 19:16
--- NOTE | 2024-07-22 20:07 | DVH ---
LEFT UPPER EXTREMITY VENOUS ULTRASOUND CLINICAL HISTORY: SWELLING / DISCOLORATION COMPARISON: None TECHNIQUE: Grayscale ultrasound with compression, color Doppler, and spectral Doppler of the deep bhargavi ous system of the left upper extremity from the base of the neck through the elbow performed. FINDINGS: Left internal jugular vein: Negative Left subclavian vein: Negative Left axillary vein: Negative. Left brachial veins:Negative. Left basilic vein: Negative Left cephalic vein: Negative. Other: Patient with brachiocephalic fistula. This appears patent at this time. IMPRESSION: No sonographic evidence of deep venous thrombosis in the left upper extremity at this time. Brachiocephalic fistula appears grossly patent.
[2024-07-22] MEDS ORDERED: NIFE1TAB36 PO (23:07)
[2024-07-22 23:10] VITALS: BP 130/79; PULSE 76; RESP 16; TEMP 98; O2SAT 98
== END 2024-07-22 23:12 | disposition home or self-care (01) ==
LOC: ER 16:35
DX: I77.0 Arteriovenous fistula, acquired (principal); E11.22 Type 2 diabetes mellitus with diabetic chronic kidney disease; I12.0 Hypertensive chronic kidney disease with stage 5 chronic kidney disease or end stage renal disease; N18.6 End stage renal disease; I82.402 Acute embolism and thrombosis of unspecified deep veins of left lower extremity; Z79.899 Other long term (current) drug therapy; Z86.73 Personal history of transient ischemic attack (TIA), and cerebral infarction without residual deficits; Z87.891 Personal history of nicotine dependence
CPT/HCPCS: 93971